=== PATIENT | female | born 1995 | race Two or more races ===

== ENCOUNTER 2018-07-20 01:47 | Emergency (ER) | payer SELFPAY ==
[2018-07-20] MEDS ORDERED: Ketorolac INJ* 30 MG/ML 1 ML VIAL IV PUSH ONE (03:30)
[2018-07-20] MEDS ORDERED: NS 0.9% 1000 ML* 1,000 ML IV ONE (03:30)
--- NOTE | 2018-07-20 03:32 | ED ---
GI/ HPI - HPI Summary HPI Summary: This patient is a 22 year old F presenting to [facility] accompanied by her friends with a chief complaint of suprapubic pain since 0100 this morning. The patient rates the pain 7/10 in severity. Pt states a couple days ago, she got a tampon stuck, by forgetting she had it in and having intercourse, but removed it immediately after. Tonight the patient was having intercourse when she had sharp vaginal and ABD pain. - History of Current Complaint Chief Complaint: EDVaginalBleeding Time Seen by Provider: 07/20/18 03:05 Stated Complaint: VAGINAL PROBLEM Hx Obtained From: Patient Onset/Duration: Started Hours Ago, Still Present Timing: Constant, Lasting Hours Severity: Moderate Current Severity: Moderate Pain Intensity: 7 Location of Pain: Suprapubic Pain Characteristics: Sharp Associated Signs and Symptoms: Positive: Negative - fever, Abdominal Pain - Allergy/Home Medications Allergies/Adverse Reactions: Allergies Allergy/AdvReac Type Severity Reaction Status Date / Time codeine AdvReac Mild Nausea Verified 07/20/18 01:54 Home Medications: Home Medications NK [No Home Medications Reported] 07/20/18 [History Confirmed 07/20/18] PMH/Surg Hx/FS Hx/Imm Hx Endocrine/Hematology History: Denies: Hx Blood Transfusions, Hx Anemia Cardiovascular History: Denies: Hx Auto Implanted Cardiovert Defib, Hx Cardiomegaly, Hx Congestive Heart Failure Respiratory History: Denies: Hx Cystic Fibrosis, Hx Lung Cancer, Hx Pneumonia GI History: Denies: Hx Gall Bladder Disease, Hx Gastrointestinal Bleed Neurological History: Denies: Hx Spinal Cord Injury Infectious Disease History: No Infectious Disease History: Denies: Traveled Outside the [place] in Last 30 Days - Family History Known Family History: Negative: Renal Disease, Seizure Disorder - Social History Alcohol Use: Occasionally Substance Use Type: Reports: None Smoking Status (MU): Never Smoked Tobacco Review of Systems Negative: Fever Positive: Abdominal Pain Genitourinary: Other - vaginal pain All Other Systems Reviewed And Are Negative: Yes Physical Exam - Summary Physical Exam Summary: VITAL SIGNS: Reviewed. GENERAL: Patient is a well-developed and nourished female who is lying comfortable in the stretcher. Patient is not in any acute respiratory distress. HEAD AND FACE: No signs of trauma. No ecchymosis, hematomas or skull depressions. No sinus tenderness. EYES: PERRLA, EOMI x 2, No injected conjunctiva, no nystagmus. EARS: Hearing grossly intact. Ear canals and tympanic membranes are within normal limits. MOUTH: Oropharynx within normal limits. NECK: Supple, trachea is midline, no adenopathy, no JVD, no carotid bruit, no c- spine tenderness, neck with full ROM. CHEST: Symmetric, no tenderness at palpation LUNGS: Clear to auscultation bilaterally. No wheezing or crackles. CVS: Regular rate and rhythm, S1 and S2 present, no murmurs or gallops appreciated. ABDOMEN: Soft, suprapubic tenderness.. No signs of distention. No rebound no guarding, and no masses palpated. Bowel sounds are normal. EXTREMITIES: FROM in all major joints, no edema, no cyanosis or clubbing. NEURO: Alert and oriented x 3. No acute neurological deficits. Speech is normal and follows commands. SKIN: Dry and warm : chaperoned by ERIKA Dunn, there is CMT. No discharge Triage Information Reviewed: Yes Vital Signs On Initial Exam: Initial Vitals Temp Pulse Resp BP Pulse Ox 98.4 F 74 16 126/79 100 07/20/18 01:49 07/20/18 01:49 07/20/18 01:49 07/20/18 01:49 07/20/18 01:49 Vital Signs Reviewed: Yes Diagnostics - Vital Signs Vital Signs Temp Pulse Resp BP Pulse Ox 07/20/18 01:49 98.4 F 74 16 126/79 100 - Laboratory Result Diagrams: 07/20/18 03:57 07/20/18 03:57 Lab Statement: Any lab studies that have been ordered have been reviewed, and results considered in the medical decision making process. - Ultrasound No standard instances Ultrasound Interpretation Completed By: Radiologist - Transvaginal US reveals, per radiologist, 1. The right ovary measures 6.6 x 4.4 x 4.3 CM. There is a complex right ovarian cyst noted measuring 5.2 x 2.5 x 2.6 CM. There is normal flow noted within the right ovary. Recommend short term followup imaging and [facility] consultation. 2. There is a moderate amount of free fluid noted within the posterior cul-de-sac. ED physician has reviewed this radiology report. GIGU Course/Dx - Course Assessment/Plan: This patient is a 22 year old F presenting to [facility] accompanied by her friends with a chief complaint of suprapubic pain since 0100 this morning. The patient rates the pain 7/10 in severity. Pt states a couple days ago, she got a tampon stuck, by forgetting she had it in and having intercourse, but removed it immediately after. Tonight the patient was having intercourse when she had sharp vaginal and ABD pain. Transvaginal US reveals, per radiologist, 1. The right ovary measures 6.6 x 4.4 x 4.3 CM. There is a complex right. ovarian cyst noted measuring 5.2 x 2.5 x 2.6 CM. There is normal flow noted. within the right ovary. Recommend short term followup imaging and [facility]. consultation. 2. There is a moderate amount of free fluid noted within the posterior. cul-de-sac. Dx right complex ovarian cyst. Blood work and UA obtained. In the ED course the patient was given IV fluids and toradol. Patient will be discharged with prescription for percocet and follow up from PCP. The patient is agreeable with this plan. - Diagnoses Provider Diagnoses: Complex cyst of right ovary Discharge - Sign-Out/Discharge Documenting (check all that apply): Patient Departure - Discharge Plan Condition: Stable Disposition: HOME Patient Education Materials: Ovarian Cyst (ED) Referrals: [facility] [Outside] Additional Instructions: Take Motrin as needed for pain if this is not enough take Percocet. RETURN TO THE EMERGENCY DEPARTMENT FOR CHANGING OR WORSENING SYMPTOMS. FOLLOW UP WITH PCP IN 1-2 DAYS. - Attestation Statements Document Initiated by Scribe: Yes Documenting Scribe: Gilles Suero Provider For Whom Scribe is Documenting (Include Credential): Jennifer Parmar MD Scribe Attestation: Gilles Osorio , scribed for Jennifer Parmar MD on 07/20/18 at 0511.
[2018-07-20 04:07] LABS: ABS Basophils 0.1 10^3/ul (0-0.2); ABS Eosinophils 0.2 10^3/ul (0-0.6); ABS Lymphocytes 2.9 10^3/ul (1.0-4.8); ABS Monocytes 0.6 10^3/ul (0-0.8); ABS Neutrophils 4.6 10^3/ul (1.5-7.7); ABS Nucleated RBC 0 10^3/ul; Eosinophil % 2.1 % (0-6); Hematocrit 42 % (35-47); Hemoglobin 14.2 g/dl (12.0-16.0); Lymphocyte % 34.2 % (25-47); Mean Corpuscular HGB Conc 34 g/dl (31-36); Mean Corpuscular Hemoglobin 29 pg (27-31); Mean Corpuscular Volume 86 fL (80-97); Mean Platelet Volume 7.8 um3 (7.4-10.4); Nucleated Red Blood Cells % 0.1; Platelet Count 223 10^3/ul (150-450); Red Blood Count 4.91 10^6/ul (4.00-5.40); Red Cell Distribution Width 13 % (10.5-15); White Blood Count 8.4 10^3/ul (3.5-10.8)
[2018-07-20 04:27] LABS: EGFR Non-African American 90.5 (>60)
--- NOTE | 2018-07-20 04:45 | RAD ---
EXAM: US Pelvis, Transvaginal CLINICAL HISTORY: 22 years old, female; Pain; Pelvic pain; Additional info: Torsion/pelvic pain TECHNIQUE: Real-time transvaginal pelvic ultrasound (complete) with image documentation. Transvaginal imaging was used for better evaluation of the endometrium and adnexa. COMPARISON: No relevant prior studies available. FINDINGS: Uterus/cervix: The uterus measures 6.9 x 2.3 x 5.0 CM. The endometrium measures 8 mm. No myometrial mass. Right ovary: The right ovary measures 6.6 x 4.4 x 4.3 CM. There is a complex right ovarian cyst noted measuring 5.2 x 2.5 x 2.6 CM. There is normal flow noted within the right ovary. Recommend short term followup imaging and [facility] consultation. Normal blood flow. Left ovary: The left ovary measures 4.2 x 2.6 x 3.1 CM. Normal blood flow. Free fluid: There is a moderate amount of free fluid noted within the posterior cul-de-sac. Bladder: Empty bladder which cannot be evaluated with this probe. IMPRESSION: 1. The right ovary measures 6.6 x 4.4 x 4.3 CM. There is a complex right ovarian cyst noted measuring 5.2 x 2.5 x 2.6 CM. There is normal flow noted within the right ovary. Recommend short term followup imaging and [facility] consultation. 2. There is a moderate amount of free fluid noted within the posterior cul-de-sac.
[2018-07-20 05:11] VITALS: BP 107/61
[2018-07-20 05:11] LABS: Urine Red Blood Cell Trace(0-2/hpf) (Absent); Urine White Blood Cell Trace(0-5/hpf) (Absent)
[2018-07-20 05:14] LABS: Urine Appearance Clear; Urine Blood 2+ (Negative); Urine Color Colorless; Urine Ketones Negative (Negative); Urine Protein 1+(30 mg/dL) (Negative); Urine Urobilinogen N (Negative)
== END 2018-07-20 05:19 | disposition home or self-care (01) ==
LOC: ED 01:47
DX: N83.291 Other ovarian cyst, right side (principal); Z88.5 Allergy status to narcotic agent
CPT/HCPCS: 36415; 76830; 80053; 81003; 81015; 83605; 85025; 86140; 87086; 96374; 99283; J1885